=== PATIENT | female | born 1960 | race Caucasian/White ===

== ENCOUNTER → 2016-09-03 | Outpatient (CLI) | payer OTHER ==
[~2016-09-03] MED LIST: ALBU1AER9; AZITTAB PO; FLVHFA220 INH; PRED20TA PO; SALM50AE2 INH
--- NOTE | 2016-09-03 15:24 | DIAGNOSTIC IMAGING REPORT ---
L-SPINE MIN 4 VIEWS ROUTINE CLINICAL HISTORY: Low back pain. COMPARISON: None FINDINGS: There are cholecystectomy clips. Vertebral body heights are maintained. There is no acute fracture. There is mild disc space narrowing at L5-S1. There is mild endplate osteophytosis. Note is made of moderate multilevel facet arthrosis. IMPRESSION: 1. No acute lumbar spine fracture or subluxation. 2. Mild multilevel degenerative disc disease and moderate multilevel facet arthrosis. Electronically signed by: Forrest Quiroga M.D. 09/03/2016 3:23 PM Dictated Date/Time: 09/03/2016 3:21 PM
== END | disposition home or self-care (01) ==
LOC: C.RAD1850 15:01
PROVIDERS: ATTEND Family Medicine
DX: M54.5 Low back pain (principal)